=== PATIENT | female | born 1985 | race Caucasian/White ===

== ENCOUNTER 2021-08-31 22:24 | Emergency (ER) | payer MEDICAID ==
[~2021-08-31] VITALS: Ht 157.5 cm; Wt 72.6 kg
[2021-08-31 22:25] VITALS: BP 150/90
--- NOTE | 2021-08-31 22:25 | NUR ---
to bed ambulatory
[2021-08-31] MEDS ORDERED: KETOROLAC 60 MG/2 ML VIAL IM ONE ×2 (22:35→23:56)
--- NOTE | 2021-08-31 23:30 | NUR ---
DR. CORDERO AT BEDSIDE EXAMINING PT.
--- NOTE | 2021-08-31 23:34 | NUR ---
Susan rivera in [facility] - 08/31/21 at 2334 by [email or web address] ER MD AT BEDSIDE
--- NOTE | 2021-08-31 23:37 | NUR ---
36 Y/O FEMALE BIBS FROM HOME, C/O PAIN TO left shoulder pain, radiating to her face, and eye for 3 weeks. NO TRAUMA, REDNESS, BRUISING, OR OBVIOUS DEFORMITY. A/OX4, GCS-15; AMBULATORY W/O ASSISTANCE; UNLABORED BREATHING, SKIN IS PINK, WARM, AND DRY. NO VISION OR HEARING ABNORMALITIES. DENIES HX/RX NKA
[2021-08-31] MEDS ORDERED: ACET-8386 PO (23:55)
[2021-08-31] MEDS ORDERED: IBUP-2213 PO (23:55)
--- NOTE | 2021-09-01 00:29 | NUR ---
Patient discharged with v/s stable. Written and verbal after care instructions given and explained. Patient alert, oriented and verbalized understanding of instructions. Ambulatory with steady gait. All questions addressed prior to discharge. ID band removed. Patient advised to follow up with PMD. Rx of MOTRIN AND NORCO 5-325 given. Patient educated on indication of medication including possible reaction and side effects. Opportunity to ask questions provided and answered. PT LEFT PRIOR TO PAIN MED ADMINISTRATION AND PRIOR TO RECIEVING DC PAPERWORK.
== END 2021-09-01 00:29 | disposition home or self-care (01) ==
LOC: MED 22:24
DX: M25.512 Pain in left shoulder (principal)
CPT/HCPCS: 81002; 81025; 99283; J1885